=== PATIENT | male | born 1990 | race Caucasian/White ===

== ENCOUNTER 2020-09-07 11:48 | Emergency (ER) | payer SELFPAY ==
[2020-09-07 11:59] VITALS: BP 145/88; PULSE 83; RESP 18; TEMP 36.3; O2SAT 97; BMI 22.3
[2020-09-07 12:02] VITALS: BP 134/86; PULSE 76; RESP 16; O2SAT 97
--- NOTE | 2020-09-07 12:04 | CT_ITS ---
WS: [id number] CT ABDOMEN AND PELVIS WITH CONTRAST HISTORY: abd pain, lower abdomen. TECHNIQUE: Imaging performed of the abdomen and pelvis with IV contrast. Single phase imaging of the abdomen. Coronal and sagittal reformats are submitted. All CT scans at [facility] use at least one of these dose optimization techniques: automated exposure control; mA and/or kV adjustment per patient size (includes targeted exams where dose is matched to clinical indication); or iterativ e reconstruction. IV CONTRAST: Omnipaque 300; 95 mL IV. Oral contrast: No DLP: 397.37 mGy.cm COMPARISON: None available. Lower thorax: Mild dependent changes and atelectasis at the lung bases. Heart is normal size. No hiat al hernia. Liver/biliary system: Normal size with no intrahepatic dilatation. Gallbladder: Normal. No gallstones or wall thickening. No pericholecystic fluid. Pancreas: Normal. Spleen: Normal. Adrenal glands: Normal. Right kidney: Normal. Left kidney: Normal. Aorta: Normal. Lymphadenopathy: None. Free fluid: None. GI tract: There is mild diffuse fluid distention of the small bowel. No obstructive pattern. There is also very mild hyperemia involving the small bowel. The appendix is not definitely visualized. There is also mild fluid distention of the colon. Abdominal wall: Unremarkable abdominal wall. No hernia. Pelvis: Normal. Bones: Unremarkable. CT/CT abdomen pelvis w con* [id number] IMPRESSION: 1. Mild fluid distention of the small bowel and colon. May represent a mild il eus or diffuse colitis. No obstruction or soft tissue mass identified. There is no ascites. 2. The appendix is not identified. 3. No renal obstruction.
--- NOTE | 2020-09-07 12:04 | XRR_ITS ---
PROCEDURE INFORMATION: Exam: XR Chest, 1 View Exam date and time: 09/07/2020 12:43 PM Age: 30 years old Clinical indication: Cough and dyspnea; Additional info: Dyspnea/cough TECHNIQUE: Imaging protocol: XR of the chest Views: 1 view. COMPARISON: No relevant prior studies available. FINDINGS: Lungs: Unremarkable. No consolidation. Pleural space: Unremarkable. No pleural effusion. No pneumothorax. Heart/Mediastinum: Unremarkable. No cardiomegaly. Bones/joints: Unremarkable. XR/XR chest 1V portable [id number] IMPRESSION: No acute findings.
[2020-09-07] MEDS: ondansetron 2 mg/ML SDV 2 mL 4 MG IVP (12:29)
[2020-09-07] MEDS: sodium chloride 0.9% 1,000 ML 999 ML IV (12:29)
[2020-09-07 12:32] VITALS: BP 127/79; PULSE 77; RESP 14; O2SAT 97
[2020-09-07 12:33] LABS: Basophils # 0.1 10^3/uL (0.0-0.1); Basophils % 0.6 %; Eosinophils # 0.2 10^3/uL (0.0-0.8); Eosinophils % 1.3 %; Hematocrit 55.1 % (42.0-52.0); Hemoglobin 18.4 g/dL (11.7-16.6); Lymphocytes # 1.7 10^3/uL (0.8-4.8); Lymphocytes % 10.4 %; Mean Corpuscular HGB Conc 33.4 g/dL (30.0-36.0); Mean Corpuscular Hemoglobin 29.8 pg (28.0-34.0); Mean Corpuscular Volume 89.3 fL (80-94); Mean Platelet Volume 9.5 fL (7.4-10.4); Monocytes # 0.8 10^3/uL (0.2-0.9); Neutrophils # 13.18 10^3/uL (1.8-7.7); Neutrophils % 82.1 %; Nucleated Red Blood Cells % 0 %; Platelet Count 247 10^3/cmm (130-400); Red Blood Count 6.17 10^6/uL (4.1-5.3); Red Cell Distribution Width 13.4 % (12.1-15.1); White Blood Count 16.1 10^3/uL (4.0-10.0)
[2020-09-07 12:59] LABS: Lactic Sepsis W/Reflex 1.1 mmol/L (0.5-2.2)
[2020-09-07 13:14] LABS: Alanine Aminotransferase 12 U/L (0-41); Albumin Level 5.2 g/dL (3.5-5.2); Alkaline Phosphatase 60 IU/L (40-130); Aspartate Amino Transferase 16 U/L (0-40); Blood Urea Nitrogen 15 mg/dL (6-20); Calcium 9.9 mg/dL (8.5-10.5); Carbon Dioxide 24 mmol/L (22-29); Chloride 103 mmol/L (98-107); Creatine Phosphokinase 93 U/L (39-308); Globulin 2.8 g/dL (1.3-4.6); Glomerular Filtration Rate 87.2 mL/min (90-130); Glucose 92 mg/dL (65-115); Lipase 20 U/L (13-60); Magnesium 1.9 mg/dL (1.7-2.3); Osmolality Calculated 286 mOsm/kg (285-295); Sodium 138 mmol/L (136-145); Total Bilirubin 0.4 mg/dL (0.15-1.2)
[2020-09-07 13:15] LABS: Anion Gap 15.7 (5-19)
[2020-09-07 13:16] LABS: Potassium 4.7 mmol/L (3.5-5.1)
[2020-09-07 13:18] LABS: Add Urine Microscopic? NO
[2020-09-07 13:24] LABS: Bilirubin Urine Neg (Negative); Blood Urine Neg (Negative); Glucose Urine UA Norm (Normal); Ketones Urine Negative (Negative); Leukocyte Esterase Urine Negative (Negative); Nitrate Urine Negative (Negative); Protein Urine Neg (Negative); Urine Appearance Clear (CLEAR); Urine Color Yellow (Yellow); Urobilinogen Urine Norm (Negative); pH Urine 5 (5-7)
[2020-09-07] MEDS: iohexol 300 mg/mL 100 mL Btl IV (13:40)
--- NOTE | 2020-09-07 14:15 | W.ED.ABDPA2 ---
HPI - Abdominal Pain General: Chief Complaint: Abdominal Pain Stated Complaint: Abd Pain Time Seen by Provider: 09/07/20 12:03 History of Present Illness: HPI narrative: 30-year-old male comes in complaining of left lower quadrant abdominal pain that began while he was at work. He had sharp severe pain and a bulge in the right groin that has resolved the pain in the groin groin bulge are both relieved. He was concerned about the severity of the pain and wanted to get evaluated. He has had problems with a bulge in that area before and thought he had a hernia. He has not had any vomiting or diarrhea but he has felt very nauseous. MD elicited complaint: abdominal pain Pertinent past history: other (Left inguinal hernia) Onset (ago): minute(s) Pain Consistency: intermittent and now resolved Location: Groin (Left) Severity: severe Quality: aching and sharp Radiation: none Migration to: no migration Exacerbating factors: movement Relieving factors: rest and other (Massage and palpation over the left hernia defect resolved the hernia) Associated Symptoms: Reports GI cramping; Denies anorexia, belching, bloating, change in bowel habits, change in stool character, chills, coffee ground emesis, constipation, diarrhea, dyspepsia, dysuria, excessive flatus, fever(s), heartburn, hematochezia, hematuria, hematemesis, fecal incontinence, loose stools, melena, nausea, poor appetite, syncope and vomiting Review of Systems Const: Denies: fever(s) ENMT: Denies: throat pain, ear or mastoid pain, nasal discharge or nasal congestion Card: Denies: syncope Resp: Denies: dyspnea, productive cough or non-productive cough GI: Reports: GI cramping; Denies: nausea, vomiting, hematemesis, coffee ground emesis, heartburn, diarrhea, constipation, bloating, belching, excessive flatus, fecal incontinence, change in bowel habits, change in stool character, hematochezia or melena : Denies: dysuria or hematuria Skin/Breast: Denies: rash or pruritus Physical Exam Const: COMMON NORMALS: no acute distress GENERAL APPEARANCE: cooperative and comfortable ORIENTATION/CONSCIOUSNESS: Yes awake, Yes oriented to person, Yes oriented to place and Yes oriented to time HENMT: COMMON NORMALS: normocephalic, atraumatic and hearing grossly normal bilaterally HEAD & SCALP: normocephalic and atraumatic Neck/C-Spine: COMMON NORMALS: no JVD Resp: COMMON NORMALS: normal respiratory effort, No retractions, No use of accessory muscles and clear to auscultation bilaterally AUSCULTATION: clear to auscultation bilaterally Cardio: COMMON NORMALS: no JVD, regular rate, regular rhythm and No murmurs present (Cardio) RATE: regular rate RHYTHM: regular rhythm GI: COMMON NORMALS: Soft to palpation and No hepatosplenomegaly present AUSCULTATION: Yes normoactive bowel sounds PALPATION: Yes Soft to palpation, No Tenderness to palpation present (GI), No Guarding due to palpation present (GI) and Yes No hepatosplenomegaly present OTHER: Palpable hernia defect in the inguinal region. With Valsalva maneuver hernia sac protrudes is easily reducible moderately tender. Extremity: COMMON NORMALS: normal to inspection, capillary refill normal, no clubbing, cyanosis or edema, no calf tenderness and no pedal edema Neuro: SENSORIUM/ORIENTATION: Yes oriented to person, Yes oriented to place and Yes oriented to time Skin: COMMON NORMALS: no rashes or lesions noted GENERAL SKIN EXAM: no rashes or lesions noted Course Vital Signs: Vital signs: Vital Signs Temperature 97.3 F L 09/07/20 11:59 Pulse Rate 77 09/07/20 12:32 Respiratory Rate 14 09/07/20 12:32 Blood Pressure 125/79 09/07/20 14:26 Pulse Oximetry 97 09/07/20 14:26 MDM - Abdominal Pain MDM Narrative: Medical decision making narrative: Small fluid-filled loop of bowel, no hernia defect or noted at the time of the CT. Organ to go ahead and discharge him home Lab Data: Labs: Lab Results 09/07/20 09/07/20 09/07/20 Range/Units 12:20 12:20 12:20 WBC 16.1 H (4.0-10.0) 10^3/ uL RBC 6.17 H (4.1-5.3) 10^6/u L Hgb 18.4 H (11.7-16.6) g/dL Hct 55.1 H (42.0-52.0) % MCV 89.3 (80-94) fL MCH 29.8 (28.0-34.0) pg MCHC 33.4 (30.0-36.0) g/dL RDW 13.4 (12.1-15.1) % Plt Count 247 (130-400) 10^3/c mm MPV 9.5 (7.4-10.4) fL Neut % (Auto) 82.1 % Lymph % (Auto) 10.4 % [place] % (Auto) 5.0 % Eos % (Auto) 1.3 % Baso % (Auto) 0.6 % Neut # (Auto) 13.18 H (1.8-7.7) 10^3/u L Lymph # (Auto) 1.7 (0.8-4.8) 10^3/u L [place] # (Auto) 0.8 (0.2-0.9) 10^3/u L Eos # (Auto) 0.2 (0.0-0.8) 10^3/u L Baso # (Auto) 0.1 (0.0-0.1) 10^3/u L Nucleated RBC % (a uto) 0 % Nucleated RBCs # 0.0 /100WBC Sodium 138 (136-145) mmol/L Potassium 4.7 (3.5-5.1) mmol/L Chloride 103 (98-107) mmol/L Carbon Dioxide 24 (22-29) mmol/L Anion Gap 15.7 (5-19) BUN 15 (6-20) mg/dL Creatinine 1.0 (0.7-1.2) mg/dL GFR Calculation 87.2 L (90-130) mL/min Glucose 92 (65-115) mg/dL Calculated Osmolal ity 286 (285-295) mOsm/k g Lactic Acid 1.1 (0.5-2.2) mmol/L Calcium 9.9 (8.5-10.5) mg/dL Magnesium 1.9 (1.7-2.3) mg/dL Total Bilirubin 0.4 (0.15-1.2) mg/dL AST 16 (0-40) U/L ALT 12 (0-41) U/L Alkaline Phosphata se 60 (40-130) IU/L Creatine Kinase 93 (39-308) U/L Total Protein 8.0 (6.6-8.7) g/dL Albumin 5.2 (3.5-5.2) g/dL Globulin 2.8 (1.3-4.6) g/dL Lipase 20 (13-60) U/L Urine Color (Yellow) Urine Appearance (CLEAR) Urine pH (5-7) Ur Specific Gravit y (1.005-1.030) Urine Protein (Negative) Urine Glucose (UA) (Normal) Urine Ketones (Negative) Urine Blood (Negative) Urine Nitrate (Negative) Urine Bilirubin (Negative) Urine Urobilinogen (Negative) mg/dL Ur Leukocyte Felicity ase (Negative) 09/07/20 Range/Units 12:45 WBC (4.0-10.0) 10^3/ uL RBC (4.1-5.3) 10^6/u L Hgb (11.7-16.6) g/dL Hct (42.0-52.0) % MCV (80-94) fL MCH (28.0-34.0) pg MCHC (30.0-36.0) g/dL RDW (12.1-15.1) % Plt Count (130-400) 10^3/c mm MPV (7.4-10.4) fL Neut % (Auto) % Lymph % (Auto) % [place] % (Auto) % Eos % (Auto) % Baso % (Auto) % Neut # (Auto) (1.8-7.7) 10^3/u L Lymph # (Auto) (0.8-4.8) 10^3/u L [place] # (Auto) (0.2-0.9) 10^3/u L Eos # (Auto) (0.0-0.8) 10^3/u L Baso # (Auto) (0.0-0.1) 10^3/u L Nucleated RBC % (a uto) % Nucleated RBCs # /100WBC Sodium (136-145) mmol/L Potassium (3.5-5.1) mmol/L Chloride (98-107) mmol/L Carbon Dioxide (22-29) mmol/L Anion Gap (5-19) BUN (6-20) mg/dL Creatinine (0.7-1.2) mg/dL GFR Calculation (90-130) mL/min Glucose (65-115) mg/dL Calculated Osmolal ity (285-295) mOsm/k g Lactic Acid (0.5-2.2) mmol/L Calcium (8.5-10.5) mg/dL Magnesium (1.7-2.3) mg/dL Total Bilirubin (0.15-1.2) mg/dL AST (0-40) U/L ALT (0-41) U/L Alkaline Phosphata se (40-130) IU/L Creatine Kinase (39-308) U/L Total Protein (6.6-8.7) g/dL Albumin (3.5-5.2) g/dL Globulin (1.3-4.6) g/dL Lipase (13-60) U/L Urine Color Yellow (Yellow) Urine Appearance Clear (CLEAR) Urine pH 5 (5-7) Ur Specific Gravit y 1.020 (1.005-1.030) Urine Protein Neg (Negative) Urine Glucose (UA) Norm (Normal) Urine Ketones Negative (Negative) Urine Blood Neg (Negative) Urine Nitrate Negative (Negative) Urine Bilirubin Neg (Negative) Urine Urobilinogen Norm (Negative) mg/dL Ur Leukocyte Felicity ase Negative (Negative) Discharge Plan Discharge Patient Disposition: Home Clinical Impression: Inguinal hernia of left side without obstruction or gangrene Condition: Stable Prescriptions: No Action No Known Home Medications RF: 0 Discharge Orders: Discharge ED (Routine); Ordered 09/07/20 Ordered By: Lake Roper Discharge Diet: Usual diet Discharge Activity: Limit activity as instructed Activity Restrictions/Additional Instructions: No lifting greater than 10 pounds. Case management will call to make appointment for surgical evaluation. Coding Level of Care Code ED Verifier Operator for Cyndy Frias
[2020-09-07 14:26] VITALS: BP 125/79; O2SAT 97
[2020-09-07 15:04] VITALS: BP 107/86; PULSE 71; RESP 15; O2SAT 98
--- NOTE | 2020-09-07 15:23 | DCPLANNER ---
information technology manager had message to schedule a follow up appointment for patient with general surgery. information technology manager emailed patients information to both Rubi and Mallorie at [facility] General Surgery. Patients information will be printed and reviewed. Clinic will call patient with appointment information.
--- NOTE | 2020-09-11 14:00 | DCPLANNER ---
Patient has a follow up appointment scheduled for Monday, September 14, 2020 at 11:[address] Rutherford. Clinic will call patient with appointment information.
--- NOTE | 2020-09-22 07:27 | DCPLANNER ---
Patient had a follow up appointment scheduled for 09.21.20 with general surgery - patient did attend appointment.
== END 2020-09-07 15:05 | disposition home or self-care (01) ==
PROVIDERS: Emergency Provider Family Medicine
DX: K40.90 Unilateral inguinal hernia, without obstruction or gangrene, not specified as recurrent (principal)
CPT/HCPCS: 12345; 71045; 74177; 80053; 81003; 82550; 83605; 83690; 83735; 85025; 96361; 96374; 99283; J2405; J7030; Q9967

== ENCOUNTER → 2020-09-26 08:09 | Outpatient (BNVA) | payer SELFPAY | PROVIDERS: Visit Provider Surgery | DX: Z01.812 Encounter for preprocedural laboratory examination (principal); K40.90 Unilateral inguinal hernia, without obstruction or gangrene, not specified as recurrent | CPT/HCPCS: 87635 ==

== ENCOUNTER 2020-10-01 10:01 | Day surgery (SDC) | payer SELFPAY ==
[2020-09-30 12:41] VITALS: BMI 21.6
[2020-10-01] VITALS (10 sets, daily range): BP systolic 117–158; BP diastolic 78–111; PULSE 53–96; RESP 14–20; TEMP 36.2–36.8; O2SAT 93–99
[2020-10-01] MEDS: sodium chloride 0.9% 1,000 ML 30 ML IV (10:41)
--- NOTE | 2020-10-01 11:12 | W.PM.OPSUD ---
Surgery/Procedure H&P Update DATE OF PROCEDURE: October 01, 2020 DATE H&P PERFORMED: 09/14/20 H&P UPDATE INFORMATION: I have reviewed H&P completed within last 30 days, I have examined patient prior to procedure and No changes to prior documentation PREOP DIAGNOSIS: Left inguinal hernia PLANNED PROCEDURE: Operation Date: 10/01/20 11:30 Proposed Procedures p Laparoscopic Inguinal Hernia Repair [id number] K40.90(Left) - Sulaiman Rutherford MD
--- NOTE | 2020-10-01 12:02 | ANES.PREANE2 ---
Pre-Anesthetic Assessment Pre-Anesthetic Assessment: Height/Weight: Height 1.8 m Weight 70.307 kg Temp Pulse Resp BP Pulse Ox 98.3 F 71 18 135/83 99 10/01/20 10:18 10/01/20 10:18 10/01/20 10:18 10/01/20 10:18 10/01/20 10:18 Preop Diagnosis: Left inguinal hernia Proposed Procedure: Operation Date: 10/01/20 11:30 Proposed Procedures p Laparoscopic Inguinal Hernia Repair [id number] K40.90(Left) - Sulaiman Rutherford MD Was Beta Moncho taken within 24 hours: N/A Last intake: Intake Last Liquid Date 10/01/20 Last Liquid Time 07:00 Last Solid Date 09/30/20 Last Solid Time 16:00 Social: Social History: Tobacco and No alcohol Exam: Pre-Anes Outpt Exam: alert, oriented x 3, clear to auscultation bilaterally and regular rate & rhythm Airway: Submandibular: WNL Cervical ROM: WNL MP: 2 Additional comments: Poor dentition Pulmonary: Pulmonary: COPD Anesthetic Plan: ASA status: 2 Anesthesia: General Risk of > 500 ml blood loss (7ml/kg in children): No Meds/Allergies Current Medications: Current Medications Generic Name Dose Route Start Last Admin Trade Name Freq PRN Reason Stop Dose Admin Sodium Chloride 1,000 mls @ 30 ml s/hr 10/01/20 10:15 10/01/20 10:41 Sodium Chloride 0.9% IV 10/02/20 10:14 30 mls/hr .Q24H NBA Administration PFSH Anesthesia PFSH: Family History Grandmother Cancer Denies family history of Anesthesia complication Bleeding disorder Social History Smoking and tobacco status: current every day smoker cigarettes Packs smoked per day: 1 Years cigarettes smoked: 19 Alcohol intake: current Alcohol intake frequency: few times a month Special maria needs: No Data Anesthesia Cardiac Studies: No Data to Display
--- NOTE | 2020-10-01 13:39 | PM.OP ---
Operative Report Date of procedure: October 01, 2020 Pre-op Diagnosis: Left inguinal hernia Post-op Diagnosis: Indirect left inguinal hernia Procedure Done: Laparoscopic total extraperitoneal repair of left inguinal hernia with SurgiMax 15 x 10 cm mesh Pathology: none sent Surgeon: Sulaiman Rutherford Anesthesia: General Condition: stable Disposition: PACU Procedure: The patient was taken to the operating room. After IV antibiotic was administered, the abdomen was prepped and draped in a sterile manner. Using a 15 blade, a 1.0 cm transverse incision was made infraumbilically on the left side. Subcutaneous tissue was divided using electrocautery and the anterior rectus sheath divided using an 11 blade. The rectus muscle was retracted laterally and the extraperitoneal space identified. A 11 mm port was placed and 12 mm of pneumoperitoneum was created. A 10 mm 30? scope was introduced and the retrorectus space was opened using the camera up to the pubic symphysis and 5 mm ports were placed in the midline, one 2-fingerbreadths above the pubic symphysis and the other midway between these two ports under direct visualization. Blunt dissection was carried out to open up the tissue in the midline and to the pubic symphysis, which was identified. The dissection was then carried laterally where the iliopubic tract was identified. There was no femoral, obturator or direct hernia noted. The inferior epigastric artery was identified and dissection was carried posterior to it and laterally, the space was opened up to the level of the umbilicus superior to the anterior superior iliac spine. I then proceeded to dissect out the spermatic cord and the indirect hernial sac was reduced . 15 x 10cm Surgimax 3D mesh was rolled and introduced through the 10 mm port and rolled laterally and apposed well against the abdominal wall to cover the myopectineal orifice completely. 10 Cc of 0.5% Marcaine was infiltrated into the preperitoneal space. The extraperitoneal space was desufflated under direct visualization to ensure no slippage of hernial sac under the mesh. All ports were removed, the anterior rectus fascia at the infraumbilical port closed using figure of eight 0 Vicryl sutures, subcutaneous tissue approximated using 3-0 Vicryl sutures and skin at all three port sites were closed using running subcuticular 4-0 Monocryl sutures and Dermabond. 10 mL of 0.5% Marcaine was infiltrated at the port sites. The patient was stable throughout the procedure.
[2020-10-01] MEDS: fentaNYL 50 mcg/mL INJ 2mL IVP (14:02)
[2020-10-01] MEDS: HYDROcodone-acetaminophen 5-325 mg Tablet 1 TAB PO (14:57)
--- NOTE | 2020-10-01 16:53 | ANE.PACU2 ---
Inpatient post-anesthesia follow up: Airway intact: Yes Vital signs: Temperature 98.0 F Pulse Rate 78 Respiratory Rate 18 Blood Pressure 117/80 Pulse Oximetry 95 Oxygen Delivery Me thod Room Air Oxygen Flow Rate 6 Fraction of Inspir ed Oxygen Hydration adequate: Yes Nausea and vomiting: No Pain level: 2 Mental status: Baseline
== END 2020-10-01 15:09 | disposition home or self-care (01) ==
PROVIDERS: Visit Provider Surgery
PROC: (CPT 49650; principal; 2020-10-01 11:20)
DX: K40.90 Unilateral inguinal hernia, without obstruction or gangrene, not specified as recurrent (principal); J44.9 Chronic obstructive pulmonary disease, unspecified; F17.210 Nicotine dependence, cigarettes, uncomplicated
CPT/HCPCS: 49650; 12345; C1781; J0690; J1100; J1885; J2250; J2405; J2704; J2710; J3010; J3490; J7030